=== PATIENT | female | born 1955 | race Caucasian/White ===

== ENCOUNTER → 2017-04-27 17:17 | Outpatient (CLI) | payer BC ==
[2012-09-16 20:56] VITALS: BMI 26.1
== END | disposition home or self-care (01) ==
LOC: D.MAMMO 16:00
DX: Z12.31 Encounter for screening mammogram for malignant neoplasm of breast (principal)

== ENCOUNTER 2018-06-21 19:00 | Outpatient (CLI) | payer BC ==
[2012-09-16 20:56] VITALS: BMI 26.1
== END 2018-06-21 23:59 | disposition home or self-care (01) ==
LOC: D.MAMMO 19:00
DX: Z12.31 Encounter for screening mammogram for malignant neoplasm of breast (principal)

== ENCOUNTER 2018-08-31 07:44 | Emergency (ER) | payer BC, MEDICARE ==
[~2018-08-31] VITALS: Ht 160 cm; Wt 65.9 kg
[2018-08-31 07:50] VITALS: Ht 160 cm; Wt 65.9 kg
[2018-08-31] MEDS ORDERED: BP MED (07:53)
[2018-08-31] MEDS ORDERED: ZANTAC300 MG PO (07:54)
[2018-08-31] MEDS ORDERED: STATIN (07:55)
[2018-08-31 08:20] LABS: APTT 26.1 SECONDS (22.8-39.4); INR 0.93 (0.85-1.17)
[2018-08-31 08:23] LABS: ALBUMIN 3.6 g/dL (3.4-5.0); ALKALINE PHOSPHATASE 76 U/L (46-116); ALT (SGPT) 36 U/L (10-68); BILIRUBIN - TOTAL 0.35 mg/dL (0.2-1.3); CALC OSMOLALITY 277 mosm/kg (275-300); CALCIUM 9.1 mg/dL (8.5-10.1); CARBON DIOXIDE 28.1 mmol/L (21.0-32.0); CHLORIDE - SERUM 101 mmol/L (98-107); CREATININE - SERUM 0.6 mg/dL (0.6-1.3); GLUCOSE 92 mg/dL (74-106); PROTEIN - SERUM 7.2 g/dL (6.4-8.2); SODIUM 139 mmol/L (136-145); UREA NITROGEN 12 mg/dL (7-18); eGFR NON AFRICAN AMERICAN > 90 mL/min (90-120)
[2018-08-31 08:27] LABS: HEMATOCRIT 41.9 % (36.0-48.0); HEMOGLOBIN 14.4 g/dL (12-16); MCH 30.9 pg (26.0-34.0); MCHC 34.4 g/dL (31.0-37.0); MCV 89.9 fL (80.0-100.0); MEAN PLATELET VOLUME 10.5 fL (7.4-10.4); NEUTROPHILS 62.9 % (40-80); PLATELET COUNT 262 10x3/uL (130-400); RBC 4.66 10x6/uL (4.00-5.40); RDW 13.3 % (11.5-14.5); WBC 6.2 10x3/uL (4.8-10.8)
[2018-08-31 08:35] LABS: CKMB 1.5 U/L (0.0-3.6); CREATINE KINASE 84 UL (21-215); MAGNESIUM - SERUM 2.1 mg/dL (1.8-2.4); TROPONIN-I < 0.017 ng/mL (0.000-0.060)
--- NOTE | 2018-08-31 13:37 | CN ---
PATIENT NAME:MELANY FREGOSO MEDICAL RECORD: [id number] : 51 LOCATION:.ER ADMIT DATE: ACCOUNT: [id number] CONSULTING PHYSICIAN: LESLY PAINTER MD REFERRING PHYSICIAN: THANH MAGAÑA MD DATE OF CONSULTATION: 08/31/2018 CARDIOLOGY CONSULTATION DIAGNOSES: Chest pain. HISTORY OF PRESENT ILLNESS: Mrs. Fregoso for the last 2 weeks has had a positional chest pain, it is a sharp stabbing pain, centered under her left breast, definitely worse if she changes position. Her troponin is normal. EKG is normal. She has no cardiac risk factors. PHYSICAL EXAMINATION: GENERAL APPEARANCE: Well-nourished, well-developed, appears stated age. Level of distress, comfortable. PSYCHIATRIC: Mental status, alert, normal affect. Orientation, oriented to time, place and person. EYES: Lids and conjunctiva, noninjected. No discharge, no pallor. ENT: Lips, teeth, gums, normal dentition. Oropharynx, no cyanosis, no pallor. NECK: Carotid arteries, bilateral normal upstroke, no bruits, no thrills. JUGULAR VEINS: No jugular venous pressure or distention. CERVICAL LYMPH NODES: Nontender, nonenlarged. THYROID: Not enlarged. Nontender. No nodules. LUNGS: Respiratory effort, unlabored. CHEST: Normal curvature. No thoracic deformity. No chest wall tenderness. Percussion, resonant. Auscultation, clear. No wheezes, no rales, no rhonchi. CARDIOVASCULAR: Precordial exam, nondisplaced. No heaves or pericardial thrills. Rate and rhythm, regular. Heart sounds, normal S1, normal S2. No S3, no gallop, no rub. Systolic murmur, not heard. Diastolic murmur, not heard. EXTREMITIES: No cyanosis, no edema. Peripheral pulses, full and equal in all extremities, except as noted. No bruits appreciated. ABDOMEN: Soft, nondistended. Normal aorta. No bruit. Nontender. No masses. Liver, nontender, no hepatomegaly. Spleen, nontender, no splenomegaly. MUSCULOSKELETAL: No joint tenderness. No joint swelling. No erythema. NEUROLOGICAL: Normal gait, normal strength, normal tone. SKIN: Warm and dry. OVERALL IMPRESSION: Positional chest pain, most likely pleuritic or musculoskeletal in nature. No other cardiac workup or treatment is necessary at this time. TRANSINT:[id number] Voice Confirmation ID: [id number] DOCUMENT ID: [id number] CONSULT REPORT [id number] MELANY FREGOSO, LESLY POWER at 1337 CC: [id number] DICTATION DATE: 08/31/18 1056 HYPO DIPPER: 08/31/18 113[address] [place] [id number]
[2018-08-31 13:45] VITALS: BP 118/82
== END 2018-08-31 11:20 | disposition home or self-care (01) ==
LOC: D.ER 07:44
PROVIDERS: Emergency Medicine
DX: R07.89 Other chest pain (principal)